=== PATIENT | female | born 1980 | race Hispanic/Latino ===

== ENCOUNTER 2018-03-20 17:53 | Emergency (ER) | payer BC ==
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
[2018-03-20] MEDS ORDERED: DILAUDID IV ONE (20:14)
--- NOTE | 2018-03-20 20:20 | XRay Report ---
FINAL REPORT EXAM: XR FEMUR BILAT 2+V HISTORY: pain. trauma TECHNIQUE: AP and lateral views of the bilateral femurs PRIORS: None. FINDINGS: Right: The hip joint is normally aligned and well preserved. The bones are normally aligned and claims examiner alized. There is no evidence of fracture or subluxation. The soft tissues are unremarkable. Left: The hip joint is normally aligned and well preserved. The bones are normally aligned and minera lized. There is no evidence of fracture or subluxation. The soft tissues are unremarkable. IMPRESSION: No evidence of acute injury.
[2018-03-20 20:46] VITALS: BP 151/103
== END 2018-03-20 21:13 | disposition home or self-care (01) ==
LOC: ED 17:53
DX: S70.10XA Contusion of unspecified thigh, initial encounter (principal); I10 Essential (primary) hypertension; M79.652 Pain in left thigh; M79.651 Pain in right thigh; F32.9 Major depressive disorder, single episode, unspecified; F98.8 Other specified behavioral and emotional disorders with onset usually occurring in childhood and adolescence; F17.200 Nicotine dependence, unspecified, uncomplicated; Z90.49 Acquired absence of other specified parts of digestive tract; Z90.710 Acquired absence of both cervix and uterus; W31.9XXA Contact with unspecified machinery, initial encounter; Y93.89 Activity, other specified; Y92.89 Other specified places as the place of occurrence of the external cause; Y99.8 Other external cause status
CPT/HCPCS: 73552; 96374; 99283; J1170